=== PATIENT | female | born 1965 | race Caucasian/White ===

== ENCOUNTER 2018-11-02 09:18 | Emergency (ER) | payer OTHER ==
[2018-11-02 09:34] VITALS: BMI 39.9
[2018-11-02 09:36] VITALS: TEMP 98.1
--- NOTE | 2018-11-02 10:33 | C.PDOC ---
History Of Present Illness 53 y/o female pt presents to the ER c/o left shoulder pain x1 week. Associated sx includes back pain. Pt notes that she went to see her PMD on the first day of her pain and received a shot that did not provide relief. Pt denies trauma, fever, chest pain, cough, nausea, SOB and vomiting. Time Seen by Provider: 11/02/18 10:18 Chief Complaint (Nursing): Upper Extremity Problem/Injury History Per: Patient History/Exam Limitations: no limitations Onset/Duration Of Symptoms: Days (x7) Current Symptoms Are (Timing): Still Present Pain Scale Rating Of: 7 Past Medical History Reviewed: Historical Data, Nursing Documentation, Vital Signs Vital Signs: Last Vital Signs Temp 98.1 F 11/02/18 09:34 Pulse 76 11/02/18 09:34 Resp 18 11/02/18 09:34 BP 138/91 H 11/02/18 09:34 Pulse Ox 96 11/02/18 09:34 - Medical History PMH: Bronchitis (08/2016), Gall Bladder Disease (?, Denies Prior [place]) Family History: States: Unknown Family Hx - Social History Hx Tobacco Use: No Hx Alcohol Use: No Hx Substance Use: No - Immunization History Hx Tetanus Toxoid Vaccination: No Hx Influenza Vaccination: No Hx Pneumococcal Vaccination: No Review Of Systems Except As Marked, All Systems Reviewed And Found Negative. Constitutional: Negative for: Fever, Other (trauma) Cardiovascular: Negative for: Chest Pain Respiratory: Negative for: Cough, Shortness of Breath Gastrointestinal: Negative for: Nausea, Vomiting Musculoskeletal: Positive for: Shoulder Pain (left), Back Pain Physical Exam - Physical Exam Appears: Non-toxic, No Acute Distress Skin: Warm, Dry Head: Normacephalic Eye(s): bilateral: Normal Inspection Neck: Normal ROM, No Midline Cervical Tenderness, No Paracervical Tenderness, Supple Cardiovascular: Rhythm Regular Respiratory: Normal Breath Sounds, No Rales, No Rhonchi, No Wheezing Back: No CVA Tenderness, No Vertebral Tenderness, No Paraspinal Tenderness Extremity: Normal ROM, Tenderness (mild tenderness to left shoulder and upper back ), No Deformity, No Swelling Neurological/Psych: Oriented x3, Normal Speech, Normal Cognition, Normal Motor, Normal Sensation ED Course And Treatment - Laboratory Results Result Diagrams: 11/02/18 11:32 11/02/18 11:32 O2 Sat by Pulse Oximetry: 96 (RA) Pulse Ox Interpretation: Normal - Other Rad chest X-Ray: Read By Radiologist Interpretation: Accession No. : [id number]. Patient Name / ID : MADAY GUARDADO / [id number]. Exam Date : 11/02/2018 11:19:37 ( Approved ). Study Comment : Sex / Age : F / 53Y. Creator : Krish Ross MD. Dictator : Krish Ross MD. Engine Monitor : Roof Bolter Helper : Krish Ross MD. Approver2 : Report Date : 11/02/2018 11:51:19. My Comment : . Date of service: 11/02/2018. HISTORY: r/o infitrate. COMPARISON: No prior. TECHNIQUE: Chest PA and lateral. FINDINGS: LUNGS: No active pulmonary disease. PLEURA: No significant pleural effusion identified. No pneumothorax apparent. CARDIOVASCULAR: No aortic atherosclerotic calcification present. Normal cardiac size. No pulmonary vascular congestion. OSSEOUS STRUCTURES: No significant abnormalities. VISUALIZED UPPER ABDOMEN: Normal. OTHER FINDINGS: None. IMPRESSION: No active disease. Medical Decision Making Medical Decision Making: Impression: musculoskeletal pain Plans: -- Valium -- Ibuprofen Disposition - Disposition Referrals: [facility] [place] [facility] [Outside] [facility] at [place] [Outside] Disposition: HOME/ ROUTINE Disposition Time: 13:06 Condition: GOOD Additional Instructions: Follow up with your pcp or Medicine clinic in a few days and take Motrin, valium as directed. Prescriptions: diaZEpam [Valium] 5 mg PO BID #6 tab Ibuprofen [Motrin] 600 mg PO Q6 #20 tab Instructions: Upper Back Pain Forms: [employer] ([place]) - Clinical Impression Clinical Impression: Muscle strain, Upper back pain - Scribe Statement The provider has reviewed the documentation as recorded by the Scribe Alvarez Do Provider Attestation: All medical record entries made by the Scribe were at my direction and personally dictated by me. I have reviewed the chart and agree that the record accurately reflects my personal performance of the history, physical exam, medical decision making, and the department course for this patient. I have also personally directed, reviewed, and agree with the discharge instructions and disposition.
[2018-11-02] MEDS ORDERED: Sodium Chloride 0.9% 1,000 ML IV ONE (11:17)
[2018-11-02] MEDS ORDERED: Sodium Chloride 0.9% 1,000 ML ONE (11:34)
[2018-11-02 11:38] LABS: BASO # 0.1 K/uL (0.0-0.2); BASO % 1.2 % (0.0-2.0); EOS % 0.3 % (0.0-4.0); HEMOGLOBIN 13.5 g/dL (11.0-16.0); LYMPH # 3.4 K/uL (1.0-4.3); LYMPH % 26.6 % (20.0-40.0); MEAN CORPUSCULAR HEMOGLOBIN 28.8 pg (27.0-31.0); MEAN CORPUSCULAR HGB CONC 33.5 g/dL (33.0-37.0); MEAN PLATELET VOLUME 10.1 fL (7.2-11.7); MONO # 0.7 K/uL (0.0-0.8); MONO % 5.2 % (0.0-10.0); NEUT # 8.4 K/uL (1.8-7.0); NEUT % 66.7 % (50.0-75.0); RBC 4.68 Mil/uL (3.80-5.20); RED CELL DISTRIBUTION WIDTH 13.8 % (11.5-14.5); WHITE BLOOD COUNT 12.6 K/uL (4.8-10.8)
[2018-11-02 11:39] LABS: MEAN CELL VOLUME 85.8 fL (81.0-99.0)
[2018-11-02 11:48] LABS: BLOOD UREA NITROGEN 13 mg/dL (7-17); CALCIUM 9.5 mg/dl (8.6-10.4); GFR NON-AFRICAN AMERICAN > 60
[2018-11-02 11:49] LABS: ALB/GLOB RATIO 1.2 (1.0-2.1); ALBUMIN 4.6 g/dL (3.5-5.0); ALT/SGPT 17 U/L (9-52); AST/SGOT 34 U/L (14-36)
--- NOTE | 2018-11-02 11:54 | RAD ---
Date of service: 11/02/2018 HISTORY: r/o infitrate COMPARISON: No prior. TECHNIQUE: Chest PA and lateral FINDINGS: LUNGS: No active pulmonary disease. PLEURA: No significant pleural effusion identified. No pneumothorax apparent. CARDIOVASCULAR: No aortic atherosclerotic calcification present. Normal cardiac size. No pulmonary vascular congestion. OSSEOUS STRUCTURES: No significant abnormalities. VISUALIZED UPPER ABDOMEN: Normal. OTHER FINDINGS: None. IMPRESSION: No active disease.
[2018-11-02 13:08] VITALS: BP 132/81; PULSE 74; RESP 16
[2018-11-02 17:29] VITALS: O2SAT 96
== END 2018-11-02 13:06 | disposition home or self-care (01) ==
LOC: C.ER 09:18
DX: M54.6 Pain in thoracic spine (principal); S46.912A Strain of unspecified muscle, fascia and tendon at shoulder and upper arm level, left arm, initial encounter; X58.XXXA Exposure to other specified factors, initial encounter
CPT/HCPCS: 71046; 80053; 82550; 85025; 96360; 96372; 99284; J1630; J7030